=== PATIENT | male | born 1945 | race Two or more races ===

== ENCOUNTER 2021-01-15 11:01 | Outpatient (CLI) | payer OTHER ==
[~2021-01-15 11:01] MED LIST: AMPICILLIN125 MG/5 M; CELEBREX100 MG PO; IBUPROFEN25 GM; LIPITOR20 MG; MILLIPRED DP5 M1 PO; NORVASC2.5 M1; SKELAXIN800 MG PO; TAMS0.4C; TOPROL XL25 M1; TRILIPIX45 MG
== END 2021-01-15 11:07 | disposition home or self-care (01) ==
LOC: TOM 11:01
PROVIDERS: ATTEND Internal Medicine Cardiovascular Disease
DX: R51.0 Headache with orthostatic component, not elsewhere classified (principal)